=== PATIENT | female | born 1930 | race Caucasian/White ===

== ENCOUNTER 2017-03-25 11:31 | Emergency (ER) | payer OTHER ==
--- NOTE | 2017-03-25 11:38 | PDOC ---
History of Present Illness - General History Source: EMS Exam Limitations: Clinical Condition, Intubated <Chuck Rodríguez - Last Filed: 03/25/17 12:09> - History of Present Illness Initial Comments: 03/25/17 12:19 The patient is a 88 year old female with a significant PMH of anemia, hypertension, diabetes, schizophrenia, hypothyroidism, urinary tract infections , resident of [facility], brought in via EMS who presents to the emergency department in cardiac arrest. The usp checked up on the patient at approximately 10:30am and was found in her bed. As per EMS, the patient was found unresponsive, CPR was initiated and epinephrine was given. EMS arrived at approximately 11:25 am and 1 round of CPR was performed. Bedside echo showed no heart motion. The patient was pronounced at 11: 33am. Allergies: NKA Past surgical history: None reported Social history: No reported alcohol, drug, or cigarette use. PCP: Dr. Justin <Emilia Tanner - Last Filed: 03/25/17 12:21> - General Chief Complaint: Cardiac Arrest Stated Complaint: CARDIAC ARREST Time Seen by Provider: 03/25/17 11:35 Past History <Chuck Rodríguez - Last Filed: 03/25/17 12:09> <Emilia Tanner - Last Filed: 03/25/17 12:21> - Past Medical History Allergies/Adverse Reactions: Allergies Allergy/AdvReac Type Severity Reaction Status Date / Time No Known Allergies Allergy Verified 03/25/17 12:18 *Physical Exam - Physical Exam Comments: 03/25/17 12:00 GENERAL: Unresponsive, cardiac arrest HEAD: No signs of trauma, intubated LUNGS: Breath sounds equal with BVM HEART: Absent ABDOMEN: Soft EXTREMITIES: Normal range of motion, no edema. <Chuck Rodríguez - Last Filed: 03/25/17 12:09> - Vital Signs Last Vital Signs Temp Pulse Resp BP Pulse Ox 0 F L 0 L 0 L 0/0 0 L 03/25/17 11:31 03/25/17 11:31 03/25/17 11:31 03/25/17 11:31 03/25/17 11:31 <Emilia Tanner - Last Filed: 03/25/17 12:21> Medical Decision Making - Medical Decision Making 03/25/17 11:38 A portion of this note was documented by scribe services under my direction. I have reviewed the details of the note, within reason, and agree with the documentation with the following case summary and management plan written by me. Patient treated in the ED. Patient arrives by ambulance to the emergency department. Nursing notes are reviewed and incorporated into the medical decision-making. Vital signs reviewed. 86-year-old female with history of anemia, hypertension, diabetes, schizophrenia , hypothyroidism, urinary tract infections brought in by EMS by Cardiac arrest. Patient is from [facility]. ~10:30 am, the usp went to check on in her. She in her bed. They had found her unresponsive and pulseless. CPR was commenced and EMS was activated. Pt was intubated in the field by EMS. Pt was in asystole. They had performed CPR and gave 3 epinephrine over course of 45 minutes. Pt arrived approx 11:25 am on arrival. 1 round of CPR was performed. Pulse check and bedside echo demonstrated NO electrical activity and no heart motion. Patient was pronounced at 11:33 am. mail examiner office contacted. [place] rejects case by Dorita Morales [id number]. Pt's daughter Risa Mukherjee at bedside and aware of patient's . Dr. Elmo Justin paged. 03/25/17 12:09 Dr. Justin informed and aware of patient . <Chuck Rodríguez - Last Filed: 03/25/17 12:09> *DC/Admit/Observation/Transfer <Chuck Rodríguez - Last Filed: 03/25/17 12:09> <Emilia Tanner - Last Filed: 03/25/17 12:21> Diagnosis at time of Disposition: Cardiac arrest - Discharge Dispostion Disposition: Condition at time of disposition: - Referrals Referrals: Elmo Justin MD [Primary Care Provider] -
[2017-03-25 12:10] VITALS: BP 0/0; PULSE 0; TEMP 0; BMI 16.0
== END 2017-03-25 16:00 | disposition expired ==
LOC: JER 11:31
PROC: 5A12012 Performance of Cardiac Output, Single, Manual (ICD-10-PCS; principal; 2017-03-25)
DX: I46.9 Cardiac arrest, cause unspecified (principal); I10 Essential (primary) hypertension; E11.9 Type 2 diabetes mellitus without complications; D64.9 Anemia, unspecified; F20.9 Schizophrenia, unspecified; E03.9 Hypothyroidism, unspecified; Z87.440 Personal history of urinary (tract) infections
CPT/HCPCS: 92950; 99283-25